=== PATIENT | female | born 1950 | race Caucasian/White ===

== ENCOUNTER 2019-12-31 15:37 | Inpatient (IN) | payer OTHER, MEDICARE ==
[~2019-12-31] VITALS: Ht 162.6 cm; Wt 90.7 kg
[2019-12-31 16:08] VITALS: BP_SYST 163
[2019-12-31] MEDS ORDERED: ONDANSETRON HCL 4 MG/2 ML VIAL IVP ONE (16:30)
[2019-12-31] MEDS ORDERED: KETOROLAC TROMETHAMINE 30 MG VIAL IVP ONE (16:30)
[2019-12-31] MEDS ORDERED: NS 500 ML IV ONE (16:30)
[2019-12-31 18:00] LABS: CALCIUM 8.9 mg/dL (8.4-11.0); CREATININE 0.78 mg/dL (0.55-1.30); POTASSIUM 4.1 mmol/L (3.5-5.1)
[2019-12-31 18:06] LABS: TOTAL BILIRUBIN 0.4 mg/dL (0.0-1.0)
[2019-12-31 19:09] LABS: HEMATOCRIT 45.3 % (36-48); HEMOGLOBIN 14.4 g/dL (12.0-16.0); MEAN CORPUSCULAR HEMOGLOBIN 30 pg (27-31); MEAN CORPUSCULAR HGB CONC 32 % (32-36); MEAN CORPUSCULAR VOLUME 93 fL (79.0-98.0); PLATELET COUNT (AUTO) 240 K/uL (130-430); RED BLOOD CELL COUNT(AUTO) 4.89 MIL/uL (4.2-6.2); RED CELL DISTRIBUTION WIDTH 13.7 % (9.0-15.0); WHITE BLOOD COUNT (AUTO) 13.8 K/uL (4.8-10.8)
[2019-12-31 19:10] LABS: BASOPHILS % (AUTO) 0.3 % (0.0-2.0); EOSINOPHILS % (AUTO) 0.3 % (0.0-4.0); LYMPHOCYTES # (AUTO) 1.2 K/uL (1.0-5.5); LYMPHOCYTES % (AUTO) 8.6 % (20.5-51.5); MONOCYTES # (AUTO) 0.8 K/uL (0.0-1.0); MONOCYTES % (AUTO) 5.7 % (1.7-9.3); NEUTROPHILS # (AUTO) 11.7 K/uL (1.8-7.7); NEUTROPHILS % (AUTO) 85.1 % (40.0-70.0)
[2019-12-31 19:15] LABS: PROTHROMBIN TIME 9.9 SECS (9.5-12.5)
[2019-12-31 20:06] LABS: CLARITY/URINE CLEAR (CLEAR); COLOR,URINE YELLOW (YELLOW)
[2019-12-31 20:07] LABS: BILIRUBIN,URINE NEGATIVE (NEGATIVE); BLOOD, URINE NEGATIVE (NEGATIVE); GLUCOSE,URINE 3+ (NEGATIVE); KETONES,URINE 2+ (NEGATIVE); LEUKOCYTE ESTERASE ,URINE NEGATIVE (NEGATIVE); PH,URINE 5.5 (5.0-8.0); PROTEIN URINE NEGATIVE (NEGATIVE)
[2019-12-31 20:08] LABS: NITRITE, URINE NEGATIVE (NEGATIVE); UROBILINOGEN,URINE 0.2 (0.2-1.0)
[2019-12-31 20:09] LABS: RBC,URINE 0-3 /HPF (0-3)
[2019-12-31 20:10] LABS: BACTERIA,URINE FEW /HPF (None Seen); MUCUS,URINE None Seen /LPF (None Seen)
[2019-12-31] MEDS ORDERED: NACL 0.9% 1,000 ML IV SCH (20:50)
[2019-12-31] MEDS ORDERED: DULA0.75 SQ (21:06)
[2019-12-31] MEDS ORDERED: METF1000 PO (21:06)
[2019-12-31] MEDS ORDERED: INVOCANA PO (21:06)
[2019-12-31] MEDS ORDERED: PEG15DRO4 OP (21:06)
[2019-12-31] MEDS ORDERED: BENEZEPRIL PO (21:06)
[2019-12-31 21:37] VITALS: BP_SYST 121
[2019-12-31] MEDS ORDERED: PANTOPRAZOLE SODIUM 40 MG/VIAL (PROTONIX) IVP ONE (22:30)
[2019-12-31] MEDS ORDERED: MORPHINE 2 MG/ML INJ. SYRINGE IVP ONE (23:45)
[2020-01-01] VITALS: BP_SYST 137
[2020-01-01] MEDS ORDERED: ACETAMINOPHEN 325 MG TABLET PO PRN (00:15)
[2020-01-01] MEDS ORDERED: LORazepam 2 MG/ML VIAL IVP PRN (00:15)
[2020-01-01] MEDS ORDERED: ALBUTEROL SULFATE 0.083% 2.5 MG/3 ML VIAL.NEB INH PRN (00:15)
[2020-01-01] MEDS ORDERED: MORPHINE 2 MG/ML INJ. SYRINGE IVP PRN (00:15)
[2020-01-01] MEDS: ONDANSETRON HCL 4 MG/2 ML VIAL IVP PRN ×5 (00:26→23:15)
[2020-01-01] MEDS: NACL 0.9% 1,000 ML IV SCH ×3 (00:28→17:22)
[2020-01-01] MEDS: MORPHINE 4 MG/ML INJ. SYRINGE IVP PRN ×6 (01:16→18:58)
[2020-01-01] MEDS ORDERED: cefTRIAXone 1 GM VIAL ONE (01:18)
[2020-01-01 01:40] VITALS: BP_SYST 137
[2020-01-01 06:50] LABS: BASOPHILS % (AUTO) 0.1 % (0.0-2.0); HEMATOCRIT 46.5 % (36-48); HEMOGLOBIN 15.2 g/dL (12.0-16.0); LYMPHOCYTES % (AUTO) 9.1 % (20.5-51.5); MEAN CORPUSCULAR HEMOGLOBIN 30 pg (27-31); MEAN CORPUSCULAR HGB CONC 33 % (32-36); MEAN CORPUSCULAR VOLUME 93 fL (79.0-98.0); MONOCYTES # (AUTO) 1.1 K/uL (0.0-1.0); MONOCYTES % (AUTO) 10.2 % (1.7-9.3); NEUTROPHILS # (AUTO) 8.6 K/uL (1.8-7.7); NEUTROPHILS % (AUTO) 80.6 % (40.0-70.0); PLATELET COUNT (AUTO) 253 K/uL (130-430); RED BLOOD CELL COUNT(AUTO) 4.99 MIL/uL (4.2-6.2); RED CELL DISTRIBUTION WIDTH 13.7 % (9.0-15.0); WHITE BLOOD COUNT (AUTO) 10.6 K/uL (4.8-10.8)
[2020-01-01 07:09] LABS: ALBUMIN 2.9 g/dL (3.4-4.8); CALCIUM 8.7 mg/dL (8.4-11.0); CREATININE 0.85 mg/dL (0.55-1.30); TOTAL BILIRUBIN 0.6 mg/dL (0.0-1.0)
[2020-01-01] MEDS: PANTOPRAZOLE SODIUM 40 MG/VIAL (PROTONIX) IVP SCH (08:18)
[2020-01-01] MEDS: INSULIN REGULAR, HUMAN 100 UNITS/ML, 10 ML VIAL (humuLIN R) SUBCUT PRN (12:14)
[2020-01-01 12:17] VITALS: BP_SYST 94
[2020-01-01 16:49] VITALS: BP_SYST 99
[2020-01-01 18:56] VITALS: BP_SYST 124
[2020-01-01 20:00] VITALS: BP_SYST 105
[2020-01-02 00:10] VITALS: BP_SYST 97
[2020-01-02 01:00] VITALS: BP_SYST 106
[2020-01-02] MEDS: NACL 0.9% 1,000 ML IV SCH ×2 (01:06→08:05)
[2020-01-02] MEDS: ONDANSETRON HCL 4 MG/2 ML VIAL IVP PRN (03:18)
[2020-01-02 08:05] VITALS: BP_SYST 108
[2020-01-02] MEDS: PANTOPRAZOLE SODIUM 40 MG/VIAL (PROTONIX) IVP SCH (09:00)
[2020-01-02] MEDS ORDERED: GASTROGRAFIN 120 ML ONE (09:08)
[2020-01-02] MEDS ORDERED: MORPHINE 4 MG/ML INJ. SYRINGE IVP PRN (11:29)
[2020-01-02] MEDS ORDERED: DEXTROSE 50%-WATER 50 ML DISP.SYRIN IVP PRN (11:30)
[2020-01-02] MEDS ORDERED: D5W 1,000 ML IV PRN (11:30)
[2020-01-02] MEDS ORDERED: GLUCOSE 15 GM GEL (in 37.5 GM TUBE) PO PRN (11:30)
[2020-01-02] MEDS: INSULIN REGULAR, HUMAN 100 UNITS/ML, 10 ML VIAL (humuLIN R) SUBCUT PRN (12:00)
[2020-01-02 12:02] VITALS: BP_SYST 126
[2020-01-02 14:48] VITALS: BP_SYST 126
== END 2020-01-02 16:40 | disposition home or self-care (01) | DRG 389 ==
LOC: SED 15:37 → SMU 20:50
PROVIDERS: ADMIT Internal Medicine Hospice and Palliative Medicine; ATTEND Internal Medicine Hospice and Palliative Medicine
DX: K56.600 Partial intestinal obstruction, unspecified as to cause (principal); R65.10 Systemic inflammatory response syndrome (SIRS) of non-infectious origin without acute organ dysfunction; E44.1 Mild protein-calorie malnutrition; K43.9 Ventral hernia without obstruction or gangrene; I10 Essential (primary) hypertension; E11.9 Type 2 diabetes mellitus without complications; Z82.49 Family history of ischemic heart disease and other diseases of the circulatory system; Z85.42 Personal history of malignant neoplasm of other parts of uterus; Z90.49 Acquired absence of other specified parts of digestive tract; Z90.710 Acquired absence of both cervix and uterus; Z79.899 Other long term (current) drug therapy; Z88.1 Allergy status to other antibiotic agents; Z88.8 Allergy status to other drugs, medicaments and biological substances
CPT/HCPCS: 36415; 71045; 74250-TC; 80053; 81000-TC; 82962; 83605; 83690-TC; 84484; 85025; 85610-TC; 85730-TC; 87040-TC; 87086; 93005; 94760; 96374; 96375; 99285; C9113; J0696; J1815; J1885; J2270; J2405; J7030; J7060; Q9963

== ENCOUNTER 2022-01-09 19:53 | Inpatient (IN) | payer OTHER, MEDICARE, SELFPAY ==
[~2022-01-09] VITALS: Ht 165.1 cm; Wt 86.2 kg
[~2022-01-09 19:53] MED LIST: BENEZEPRIL PO; DULA0.75 SQ; INVOCANA PO; METF1000 PO; PEG15DRO4 OP
[2022-01-09 20:05] VITALS: BP_SYST 186
[2022-01-09] MEDS ORDERED: MORPHINE 4 MG INJ. 4 MG/ML VIAL IVP ONE ×3 (20:30→22:00)
[2022-01-09] MEDS ORDERED: ONDANSETRON HCL 4 MG/2 ML VIAL IVP ONE ×2 (20:30→21:30)
[2022-01-09] MEDS ORDERED: NACL 0.9% 1,000 ML IV ONE ×2 (20:30→22:00)
[2022-01-09 20:49] LABS: BASOPHILS % (AUTO) 0.2 % (0.0-2.0); EOSINOPHILS % (AUTO) 0.1 % (0.0-4.0); HEMATOCRIT 45.6 % (36-48); LYMPHOCYTES # (AUTO) 1.4 K/uL (1.0-5.5); LYMPHOCYTES % (AUTO) 9.8 % (20.5-51.5); MEAN CORPUSCULAR HEMOGLOBIN 30 pg (27-31); MEAN CORPUSCULAR HGB CONC 33 % (32-36); MEAN CORPUSCULAR VOLUME 90 fL (79.0-98.0); MONOCYTES # (AUTO) 0.7 K/uL (0.0-1.0); NEUTROPHILS # (AUTO) 12.4 K/uL (1.8-7.7); NEUTROPHILS % (AUTO) 84.9 % (40.0-70.0); PLATELET COUNT (AUTO) 276 K/uL (130-430); RED BLOOD CELL COUNT(AUTO) 5.08 MIL/uL (4.2-6.2); RED CELL DISTRIBUTION WIDTH 13.6 % (9.0-15.0); WHITE BLOOD COUNT (AUTO) 14.6 K/uL (4.8-10.8)
[2022-01-09 20:52] LABS: CALCIUM 8.9 mg/dL (8.4-11.0); CREATININE 0.8 mg/dL (0.55-1.30); POTASSIUM 3.9 mmol/L (3.5-5.1)
[2022-01-09 21:01] LABS: ALBUMIN 3.8 g/dL (3.4-4.8); TOTAL BILIRUBIN 0.3 mg/dL (0.0-1.0)
[2022-01-09] MEDS ORDERED: HYDROmorphone 1 MG/ML INJ. CARTRIDGE IVP ONE (22:30)
[2022-01-09] MEDS ORDERED: LACTULOSE 20 GM/30 ML UDC PO ONE (22:45)
[2022-01-09] MEDS ORDERED: dilTIAZem HCL IVP 5 MG/ML VIAL IVP PRN (23:15)
[2022-01-09] MEDS ORDERED: DILTIAZEM HCL 60 MG TABLET PO ONE (23:15)
[2022-01-09] MEDS ORDERED: NALOXONE HCL 0.4 MG/ML AMP (NARCAN) IVP PRN ×2 (23:15→23:30)
[2022-01-09] MEDS ORDERED: DEXTROSE 50% JECT 50 ML DISP.SYRIN IVP PRN (23:15)
[2022-01-09] MEDS ORDERED: MORPHINE 2 MG/ML INJ. SYRINGE IVP PRN (23:15)
[2022-01-09] MEDS ORDERED: PEG 400/HYPROMELLOSE/GLYCERIN 15 ML DROPS OP SCH (23:15)
[2022-01-09] MEDS ORDERED: ZOLPIDEM TARTRATE 5 MG TABLET PO PRN (23:30)
[2022-01-09] MEDS ORDERED: ACETAMINOPHEN 325 MG TABLET PO PRN (23:30)
[2022-01-09] MEDS ORDERED: ONDANSETRON HCL 4 MG/2 ML VIAL IVP PRN (23:30)
[2022-01-09] MEDS ORDERED: APIX5TAB4 PO (23:40)
[2022-01-10 00:27] VITALS: BP_SYST 139
[2022-01-10] MEDS: LR 1,000 ML IV SCH ×4 (00:51→21:22)
[2022-01-10 01:03] VITALS: BP_SYST 139
[2022-01-10 01:24] LABS: BILIRUBIN,URINE NEGATIVE (NEGATIVE); BLOOD, URINE NEGATIVE (NEGATIVE); CLARITY/URINE CLEAR (CLEAR); COLOR,URINE YELLOW (YELLOW); GLUCOSE,URINE 3+ (NEGATIVE); KETONES,URINE 2+ (NEGATIVE); LEUKOCYTE ESTERASE ,URINE NEGATIVE (NEGATIVE); NITRITE, URINE NEGATIVE (NEGATIVE); PH,URINE 5.5 (5.0-8.0); PROTEIN URINE NEGATIVE (NEGATIVE); UROBILINOGEN,URINE 0.2 (0.2-1.0)
[2022-01-10] MEDS: HYDROmorphone 1 MG/ML INJ. CARTRIDGE IM PRN ×3 (02:56→13:38)
[2022-01-10] MEDS: INSULIN REGULAR, HUMAN 100 UNITS/ML, 10 ML VIAL (humuLIN R) SUBCUT PRN ×3 (06:14→21:15)
[2022-01-10] MEDS: METOCLOPRAMIDE HCL 10 MG/2 ML VIAL IVP PRN ×2 (06:32→13:36)
[2022-01-10 06:36] LABS: BASOPHILS % (AUTO) 0.1 % (0.0-2.0); HEMATOCRIT 41.7 % (36-48); HEMOGLOBIN 13.7 g/dL (12.0-16.0); LYMPHOCYTES # (AUTO) 0.6 K/uL (1.0-5.5); LYMPHOCYTES % (AUTO) 4.1 % (20.5-51.5); MEAN CORPUSCULAR HEMOGLOBIN 30 pg (27-31); MEAN CORPUSCULAR HGB CONC 33 % (32-36); MONOCYTES # (AUTO) 1.1 K/uL (0.0-1.0); MONOCYTES % (AUTO) 8.1 % (1.7-9.3); NEUTROPHILS # (AUTO) 12.4 K/uL (1.8-7.7); NEUTROPHILS % (AUTO) 87.7 % (40.0-70.0); PLATELET COUNT (AUTO) 240 K/uL (130-430); RED BLOOD CELL COUNT(AUTO) 4.56 MIL/uL (4.2-6.2); RED CELL DISTRIBUTION WIDTH 13.7 % (9.0-15.0); WHITE BLOOD COUNT (AUTO) 14.1 K/uL (4.8-10.8)
[2022-01-10 06:58] LABS: MEAN CORPUSCULAR VOLUME 92 fL (79.0-98.0)
[2022-01-10 07:24] LABS: ALBUMIN 3.1 g/dL (3.4-4.8); CALCIUM 8.5 mg/dL (8.4-11.0); CREATININE 0.81 mg/dL (0.55-1.30); POTASSIUM 3.8 mmol/L (3.5-5.1); TOTAL BILIRUBIN 0.5 mg/dL (0.0-1.0)
[2022-01-10 08:00] VITALS: BP_SYST 132
[2022-01-10] MEDS: MINERAL OIL 30 ML UDC PO SCH (08:32)
[2022-01-10] MEDS: lisinopriL 20 MG TABLET PO SCH (08:32)
[2022-01-10] MEDS: metFORMIN HCL 500 MG TABLET PO SCH ×2 (08:39→21:21)
[2022-01-10] MEDS ORDERED: GASTROGRAFIN 120 ML ONE (08:44)
[2022-01-10] MEDS ORDERED: CANAGLIFLOZIN 300 MG PO SCH (09:00)
[2022-01-10] MEDS: MORPHINE 4 MG INJ. 4 MG/ML VIAL IVP PRN ×2 (10:36→14:56)
[2022-01-10 12:00] VITALS: BP_SYST 149
[2022-01-10 16:00] VITALS: BP_SYST 138
[2022-01-10] MEDS ORDERED: BISACODYL 10 MG/SUPPOSITORY RC ONE (19:30)
[2022-01-10 20:09] VITALS: BP_SYST 150
[2022-01-10 23:45] LABS: BILIRUBIN,URINE NEGATIVE (NEGATIVE); BLOOD, URINE NEGATIVE (NEGATIVE); CLARITY/URINE CLEAR (CLEAR); COLOR,URINE YELLOW (YELLOW); GLUCOSE,URINE 3+ (NEGATIVE); KETONES,URINE 2+ (NEGATIVE); LEUKOCYTE ESTERASE ,URINE NEGATIVE (NEGATIVE); NITRITE, URINE NEGATIVE (NEGATIVE); PH,URINE 5.5 (5.0-8.0); PROTEIN URINE NEGATIVE (NEGATIVE); UROBILINOGEN,URINE 0.2 (0.2-1.0)
[2022-01-11 00:49] VITALS: BP_SYST 153
[2022-01-11] MEDS: LR 1,000 ML IV SCH ×3 (06:31→15:48)
[2022-01-11] MEDS: INSULIN REGULAR, HUMAN 100 UNITS/ML, 10 ML VIAL (humuLIN R) SUBCUT PRN ×3 (06:33→20:25)
[2022-01-11 06:42] LABS: BASOPHILS % (AUTO) 0.2 % (0.0-2.0); EOSINOPHILS % (AUTO) 0.1 % (0.0-4.0); HEMATOCRIT 40.4 % (36-48); HEMOGLOBIN 13.2 g/dL (12.0-16.0); LYMPHOCYTES # (AUTO) 1.2 K/uL (1.0-5.5); MEAN CORPUSCULAR HEMOGLOBIN 30 pg (27-31); MEAN CORPUSCULAR HGB CONC 33 % (32-36); MEAN CORPUSCULAR VOLUME 91 fL (79.0-98.0); MONOCYTES # (AUTO) 2.4 K/uL (0.0-1.0); MONOCYTES % (AUTO) 20.3 % (1.7-9.3); NEUTROPHILS # (AUTO) 8.2 K/uL (1.8-7.7); NEUTROPHILS % (AUTO) 69.4 % (40.0-70.0); PLATELET COUNT (AUTO) 244 K/uL (130-430); RED BLOOD CELL COUNT(AUTO) 4.43 MIL/uL (4.2-6.2); RED CELL DISTRIBUTION WIDTH 13.9 % (9.0-15.0); WHITE BLOOD COUNT (AUTO) 11.7 K/uL (4.8-10.8)
[2022-01-11 06:54] LABS: CALCIUM 7.9 mg/dL (8.4-11.0); CREATININE 0.69 mg/dL (0.55-1.30); POTASSIUM 3.3 mmol/L (3.5-5.1)
[2022-01-11 07:56] VITALS: BP_SYST 138
[2022-01-11] MEDS: metFORMIN HCL 500 MG TABLET PO SCH ×2 (09:00→20:22)
[2022-01-11] MEDS: lisinopriL 20 MG TABLET PO SCH (09:00)
[2022-01-11] MEDS: MINERAL OIL 30 ML UDC PO SCH (09:00)
[2022-01-11 11:25] VITALS: BP_SYST 125
[2022-01-11] MEDS ORDERED: POTASSIUM CHLORIDE 40 MEQ, LIDOCAINE JECT 2% PF 100 MG 50 MG in NS 250 ML IV ONE (14:30)
[2022-01-11 15:25] VITALS: BP_SYST 146
[2022-01-11 20:00] VITALS: BP_SYST 147
[2022-01-11] MEDS ORDERED: APIXABAN 2.5 MG TABLET PO SCH (21:00)
[2022-01-11 21:08] VITALS: BP_SYST 147
== END 2022-01-11 22:05 | disposition home or self-care (01) | DRG 389 ==
LOC: SED 19:53 → STU 22:31
PROVIDERS: ADMIT Internal Medicine; ATTEND Internal Medicine
DX: K56.600 Partial intestinal obstruction, unspecified as to cause (principal); R65.10 Systemic inflammatory response syndrome (SIRS) of non-infectious origin without acute organ dysfunction; I10 Essential (primary) hypertension; E11.9 Type 2 diabetes mellitus without complications; E78.5 Hyperlipidemia, unspecified; K57.90 Diverticulosis of intestine, part unspecified, without perforation or abscess without bleeding; K56.41 Fecal impaction; I49.9 Cardiac arrhythmia, unspecified; K43.9 Ventral hernia without obstruction or gangrene; E66.9 Obesity, unspecified; R16.0 Hepatomegaly, not elsewhere classified; Z20.822 Contact with and (suspected) exposure to COVID-19; Z85.42 Personal history of malignant neoplasm of other parts of uterus; Z90.710 Acquired absence of both cervix and uterus; Z88.1 Allergy status to other antibiotic agents; Z88.8 Allergy status to other drugs, medicaments and biological substances; Z79.899 Other long term (current) drug therapy; Z68.31 Body mass index [BMI] 31.0-31.9, adult
CPT/HCPCS: 36415; 74018; 74250-TC; 76376; 80048; 80053; 81003; 82962; 83036; 83605; 83690; 84484; 85025; 87040; 87086; 96361; 96374; 96375; 96376; 99285; G0378; J1170; J1815; J2270; J2405; J2765; J3480; J7050; Q9963

== ENCOUNTER 2024-04-20 07:16 | Day surgery (SDC) | payer MEDICARE, OTHER ==
[~2024-04-20] VITALS: Ht 162.6 cm; Wt 82.6 kg
[~2024-04-20 07:16] MED LIST changes: +APIX5TAB4 PO; +CEFAZOLIN SOD 2 GM in D5W 50 ML IV ONE; +LR 1,000 ML IV SCH
[2024-04-20 11:20] VITALS: BP_SYST 141; PULSE 101; RESP 20; TEMP 97.3; O2SAT 97
== END 2024-04-20 09:00 | disposition home or self-care (01) ==
LOC: SDS 07:16 → SMU 07:17 → SDS 09:00
PROVIDERS: ATTEND Colon & Rectal Surgery
DX: K43.2 Incisional hernia without obstruction or gangrene (principal); Z53.8 Procedure and treatment not carried out for other reasons; I10 Essential (primary) hypertension; E11.9 Type 2 diabetes mellitus without complications; Z90.710 Acquired absence of both cervix and uterus; Z90.49 Acquired absence of other specified parts of digestive tract; Z98.890 Other specified postprocedural states; Z88.1 Allergy status to other antibiotic agents; Z85.42 Personal history of malignant neoplasm of other parts of uterus
CPT/HCPCS: 87081; 82948; J0690; J7060

== ENCOUNTER 2024-07-09 23:18 | Emergency (ER) | payer OTHER, MEDICARE ==
[~2024-07-09] VITALS: Ht 162.6 cm; Wt 86.2 kg
[~2024-07-09 23:18] MED LIST changes: +ACET-2634 PO; -CEFAZOLIN SOD 2 GM in D5W 50 ML IV ONE; +DICY10SO PO; -LR 1,000 ML IV SCH
[2024-07-09 23:45] VITALS: BP_SYST 133; PULSE 77; RESP 20; TEMP 98.2; O2SAT 94
[2024-07-10 00:08] LABS: BASOPHILS % (AUTO) 0.1 % (0.0-2.0); EOSINOPHILS % (AUTO) 0.1 % (0.0-4.0); HEMATOCRIT 48.1 % (36-48); HEMOGLOBIN 15.8 g/dL (12.0-16.0); LYMPHOCYTES # (AUTO) 1.5 K/uL (1.0-5.5); LYMPHOCYTES % (AUTO) 8.5 % (20.5-51.5); MEAN CORPUSCULAR HEMOGLOBIN 30 pg (27-31); MEAN CORPUSCULAR HGB CONC 33 % (32-36); MEAN CORPUSCULAR VOLUME 92 fL (79.0-98.0); MONOCYTES # (AUTO) 1.4 K/uL (0.0-1.0); MONOCYTES % (AUTO) 7.9 % (1.7-9.3); NEUTROPHILS # (AUTO) 14.4 K/uL (1.8-7.7); NEUTROPHILS % (AUTO) 83.4 % (40.0-70.0); PLATELET COUNT (AUTO) 290 K/uL (130-430); RED BLOOD CELL COUNT(AUTO) 5.25 MIL/uL (4.2-6.2); RED CELL DISTRIBUTION WIDTH 13.2 % (9.0-15.0); WHITE BLOOD COUNT (AUTO) 17.2 K/uL (4.8-10.8)
[2024-07-10 00:26] LABS: ALANINE AMINOTRANSFERASE 16 U/L (12-78); ALBUMIN 3.4 g/dL (3.4-4.8); ANION GAP 13 (5-15); ASPARTATE AMINOTRANSFERASE 13 U/L (10-37); BILIRUBIN,DIRECT 0.1 mg/dL (0.0-0.3); CALCIUM 9.7 mg/dL (8.4-11.0); CARBON DIOXIDE 23 mmol/L (23-29); CHLORIDE 103 mmol/L (98-107); CREATININE 1.02 mg/dL (0.55-1.30); GLUCOSE 247 mg/dL (74-106); POTASSIUM 4.4 mmol/L (3.5-5.1); SODIUM SERUM 139 mmol/L (136-145); TOTAL BILIRUBIN 0.5 mg/dL (0.0-1.0); TOTAL PROTEIN, SERUM 7.7 g/dL (6.4-8.3); UREA NITROGEN, BLOOD 20 mg/dL (8-21)
[2024-07-10 00:29] LABS: BILIRUBIN,URINE NEGATIVE (NEGATIVE); CLARITY/URINE CLEAR (CLEAR); COLOR,URINE YELLOW (YELLOW); GLUCOSE,URINE 3+ (NEGATIVE); KETONES,URINE 2+ (NEGATIVE); LEUKOCYTE ESTERASE ,URINE NEGATIVE (NEGATIVE); NITRITE, URINE NEGATIVE (NEGATIVE); PROTEIN URINE NEGATIVE (NEGATIVE); UROBILINOGEN,URINE 0.2 (0.2-1.0)
[2024-07-10 00:42] LABS: BLOOD, URINE TRACE (NEGATIVE)
[2024-07-10] MEDS: ONDANSETRON HCL 4 MG/2 ML VIAL IVP ONE (00:42)
[2024-07-10] MEDS: NACL 0.9% 1,000 ML IV ONE (00:42)
[2024-07-10 00:43] LABS: BACTERIA,URINE None Seen /HPF (None Seen); WBC,URINE 0-3 /HPF (0-3)
[2024-07-10] MEDS: MORPHINE 4 MG INJ. 4 MG/ML VIAL IVP ONE ×2 (00:43→02:38)
[2024-07-10] MEDS ORDERED: DICY10SO PO (04:55)
[2024-07-10 05:13] VITALS: BP_SYST 115; PULSE 97; RESP 18; TEMP 98.1; O2SAT 95
== END 2024-07-10 05:09 | disposition home or self-care (01) ==
LOC: SED 23:18
DX: R10.84 Generalized abdominal pain (principal); R11.2 Nausea with vomiting, unspecified; E11.9 Type 2 diabetes mellitus without complications; I10 Essential (primary) hypertension; Z85.42 Personal history of malignant neoplasm of other parts of uterus; Z88.1 Allergy status to other antibiotic agents; Z88.8 Allergy status to other drugs, medicaments and biological substances; Z79.899 Other long term (current) drug therapy; Z79.2 Long term (current) use of antibiotics
CPT/HCPCS: 99285; 80076; 80048; 81000; 81001; 85025; 36415; 74176; 96374; 96361; 96375; 96376; 81015; J2405; J2270; J7030